=== PATIENT | female | born 1965 | race Caucasian/White ===

== ENCOUNTER 2017-08-24 06:52 | Inpatient (IN) | payer BC ==
--- NOTE | 2017-08-24 07:32 | Emergency Department Record ---
History of Present Illness - General Chief complaint: Extremity Problem Stated complaint: LEG PAIN Time Seen by Provider: 08/24/17 07:03 Source: Patient, RN notes reviewed Mode of Arrival: Ambulatory - History of Present Illness Initial comments: fever 4 days ago and nausea and vomiting with vomiting 4 days ago and vomiting 3 days ago and fever last night and the left leg became very red 6 days ago and progressively worse with ulcers on both legs and the left leg is brightly red and the right leg has ulcers but the skin is hyperpigmented and not inflamed. Primary Dr. is Dr. Lizarraga and she hasn't seen him for a year and last time at the [facility] wound clinic was 1.5 years ago. Seen by urgent care in [place] about one month ago and given an antibiotic for 10 days and they don't know the name of the antibiotic and it helped her. The left leg was the worse leg than too. PMH hypertension and obesity Last time overnight in the hospital was 3 years ago at [facility] for her leg infections. put the ink lines on the left upper calf last night Onset/Timin -: Days(s) Location: Left, Lower Leg History of Same: Yes Associated Symptoms: Fever - Related Data Home Medications Medication Instructions Recorded Confirmed Last Taken Multivitamin [Multi-Vitamin Daily] 1 each PO DAILY 08/24/17 08/24/17 08/23/17 Allergies Allergy/AdvReac Type Severity Reaction Status Date / Time No Known Drug Allergies Allergy Verified 08/24/17 06:54 Travel Screening - Travel/Exposure Within Last 30 Days Have you traveled within the last 30 days?: No Review of Systems Reviewed: No additional complaints except as noted below Constitutional: Reports: As per HPI. Denies: Chills, Fever, Malaise, Night sweats, Weakness, Weight change Eyes: Reports: As per HPI. Denies: Eye discharge, Eye pain, Photophobia, Vision change ENT: Reports: As per HPI. Denies: Congestion, Dental pain, Ear pain, Epistaxis , Hearing loss, Throat pain Respiratory: Reports: As per HPI. Denies: Cough, Dyspnea, Hemoptysis, Stridor, Wheezes Cardiovascular: Reports: As per HPI. Denies: Arrhythmia, Chest pain, Dyspnea on exertion, Edema, Murmurs, Orthopnea, Palpitations, Paroxysmal nocturnal dyspnea, Rheumatic Fever, Syncope Endocrine: Reports: As per HPI. Denies: Fatigue, Heat or cold intolerance, Polydipsia, Polyuria Gastrointestinal: Reports: As per HPI. Denies: Abdominal pain, Constipation, Diarrhea, Hematemesis, Hematochezia, Melena, Nausea, Vomiting Genitourinary: Reports: As per HPI. Denies: Abnormal menses, Discharge, Dyspareunia, Dysuria, Frequency, Hematuria, Incontinence, Retention, Urgency Musculoskeletal: Reports: As per HPI. Denies: Arthralgia, Back pain, Gout, Joint swelling, Myalgia, Neck pain Skin: Reports: As per HPI, Rash, Other (ulcers of both leg and erythema of the left leg.). Denies: Bruising, Change in color, Change in hair/nails, Lesions, Pruritus Neurological: Reports: As per HPI. Denies: Abnormal gait, Confusion, Headache, Numbness, Paresthesias, Seizure, Tingling, Tremors, Vertigo, Weakness Psychiatric: Reports: As per HPI. Denies: Anxiety, Auditory hallucinations, Depression, Homicidal thoughts, Suicidal thoughts, Visual hallucinations Hematological/Lymphatic: Reports: As per HPI. Denies: Anemia, Blood Clots, Easy bleeding, Easy bruising, Swollen glands Past Medical History - SOCIAL HISTORY Smoking Status: Never smoker Alcohol Use: None Drug Use: None - RESPIRATORY Hx Respiratory Disorders: No - CARDIOVASCULAR Hx Cardio Disorders: Yes Hx Hypertension: Yes - NEURO Hx Neuro Disorders: No - GI Hx GI Disorders: No - Hx Genitourinary Disorders: No - ENDOCRINE Hx Endocrine Disorders: No - MUSCULOSKELETAL Hx Musculoskeletal Disorders: No - PSYCH Hx Psych Problems: No - HEMATOLOGY/ONCOLOGY Hx Hematology/Oncology Disorders: No Family Medical History Any Significant Family History?: No Physical Exam - General General Appearance: Alert, Oriented x3, Cooperative, No acute distress - Head Head exam: Normal inspection - Eye Eye exam: Normal appearance, PERRL Pupils: Normal accommodation - ENT ENT exam: Normal exam, Mucous membranes moist, Normal external ear exam, Normal orophraynx, TM's normal bilaterally Ear exam: Normal external inspection. negative: External canal tenderness Nasal Exam: Normal inspection. negative: Discharge, Sinus tenderness Mouth exam: Normal external inspection, Tongue normal Teeth exam: Normal inspection. negative: Dental caries Throat exam: Normal inspection. negative: Tonsillar erythema, Tonsillar exudate - Neck Neck exam: Normal inspection, Full ROM. negative: Tenderness - Respiratory Respiratory exam: Normal lung sounds bilaterally. negative: Respiratory distress - Cardiovascular Cardiovascular Exam: Regular rate, Normal rhythm, Normal heart sounds - GI/Abdominal GI/Abdominal exam: Soft, Normal bowel sounds. negative: Tenderness - Rectal Rectal exam: Deferred - exam: Deferred - Extremities Extremities exam: Full ROM, Normal capillary refill, Pedal edema (left lower leg swollen compared to right), Tenderness (left lower leg) - Back Back exam: Reports: Normal inspection, Full ROM. Denies: Muscle spasm, Rash noted, Tenderness - Neurological Neurological exam: Alert, Normal gait, Oriented X3, Reflexes normal - Psychiatric Psychiatric exam: Normal affect, Normal mood - Skin Skin exam: Warm, Other (skin ulcerated both legs and left draining more than right large skin ulcers ,let red brightly red and painful the right leg hyperpigmented with ulcers draining) Course Vital Signs 08/24/17 07:11 Temperature 98.9 F Pulse Rate [ 99 H Pulse Ox Probe] Respiratory 20 Rate Blood Pressure 137/88 [Left Arm] Pulse Ox 96 - Reevaluation(s) Reevaluation #1: discussed case with Reanna and will admit to Dr. Aragon for IV antibiotics vancomycin 2 gm every 8 hours and unasyn 3 gm every 6 hours 08/24/17 09:22 08/24/17 09:46 Reevaluation #2: discussed findings with patient and her and plan for IV antibiotics and than outpatient wound clinic at [facility]. 08/24/17 09:47 Reevaluation #3: venous doppler no DVT's seen but difficulty seeing much in the lower leg because of body habitus and edema from cellulitis 08/24/17 10:37 Medical Decision Making - Data Complexity MDM Data: Labs Ordered and/or Reviewed, X-Ray Ordered and/or Reviewed (venous dople bilaterally neg for DVT's chest xray neg by my eyes ,left leg no obvious gas by my eyes wound present) - Lab Data Result diagrams: 08/24/17 08:00 08/24/17 08:00 Disposition Clinical Impression: Cellulitis of leg without foot, left Leg ulcer, left Qualifiers: Non-pressure ulcer stage: unspecified non-pressure ulcer stage Qualified Code(s ): L97.929 - Non-pressure chronic ulcer of unspecified part of left lower leg with unspecified severity Ulcer of right leg Qualifiers: Non-pressure ulcer stage: unspecified non-pressure ulcer stage Qualified Code(s ): L97.919 - Non-pressure chronic ulcer of unspecified part of right lower leg with unspecified severity Condition: (2) Stable Forms: Patient Portal Access Time of Disposition: 09:47 Quality - Quality Measures Quality Measures: N/A - Blood Pressure Screening Does Patient Have Any of the Following: No Blood Pressure Classification: Pre-Hypertensive BP Reading Systolic Measurement: 125 Diastolic Measurement: 82 Screening for High Blood Pressure: < Pre-Hypertensive BP, F/U Documented > [ [id number]] Pre-Hypertensive Follow-up Interventions: Referral to alternative/primary care provider.
[2017-08-24 08:12] LABS: HEMATOCRIT 39.4 % (35.0-47.0); HEMOGLOBIN 13.3 gm/dl (11.6-16.0); MEAN CELL VOLUME 80.7 fl (81-97); MEAN CORPUSCULAR HEMOGLOBIN 27.3 pg (27-33); MEAN CORPUSCULAR HGB CONC 33.8 g/dl (32-36); MEAN PLATELET VOLUME 11.3 fl (7.4-10.4); PLATELET COUNT 196 K/uL (130-400); RED BLOOD COUNT 4.88 M/uL (3.80-5.40); WHITE BLOOD COUNT W/O DIFF 8.3 K/uL (4.2-12.2)
[2017-08-24 08:25] LABS: BLOOD UREA NITROGEN 16 mg/dL (6-20)
[2017-08-24 08:26] LABS: CREATININE 0.8 mg/dL (0.5-0.9); EST GLOMERULAR FILTRATION RATE > 60 mL/min
[2017-08-24 08:28] LABS: GLUCOSE,RANDOM 138 mg/dL (74-109)
[2017-08-24] MEDS ORDERED: VANCOMYCIN HCL 2,000 MG in 0.9 % SODIUM CHLORIDE 250ML 250 ML IVPB ONE (09:20)
[2017-08-24] MEDS ORDERED: AMPICILLIN SODIUM/SULBACTAM NA 3 G in 0.9 % SODIUM CHLORIDE 100ML 100 ML IVPB ONE (09:20)
[2017-08-24] MEDS ORDERED: VANCOMYCIN HCL 2,000 MG in 0.9 % SODIUM CHLORIDE 500ML 500 ML IVPB ONE (09:45)
[2017-08-24] MEDS ORDERED: ACETAMINOPHEN 325 MG TAB PO PRN (12:35)
[2017-08-24] MEDS ORDERED: AMPICILLIN SODIUM/SULBACTAM NA 3 G in 0.9 % SODIUM CHLORIDE 100ML 100 ML IVPB SCH (16:00)
--- NOTE | 2017-08-24 17:53 | History & Physical ---
History of Present Illness - Date of Service Date of Service for History & Physical: 08/25/17 - History of Present Illness Admitting Diagnosis: cellulitis of left lower leg History of Present Illness: Mrs. Heredia is a 52 year-old [place] female who presented to the ED on with c/o fever 4 days ago with nausea and vomiting. Her left leg became very red 6 days ago and progressively worse with ulcers on both legs and the hyperpigmented. Primary Dr. is Dr. Lizarraga and she hasn't seen him for a year and last time at the [facility] wound clinic was 1.5 years ago. She was seen by urgent care in [place] about one month ago and given an antibiotic for 10 days and they do not recall the name of the antibiotic, but it did help her. The left leg was more swollen at that time, too. PMH: hypertension and obesity (no htn meds). Last hospital admission was 3 years ago at [facility] for her leg infections. In the ED, her vital signs were stable, she was afebrile. Her CBC and CMP did not indicate acute infection. Blood cultures were obtained, as well as left leg ulcer culture. CXR was negative. A left tib/fib xray was obtained and did show soft tissue swelling on anterior calf, but no bone involvement or free air. Venous doppler was negative, and arterial doppler was ordered. She was admitted for IV antibiotics and plan for outpatient wound clinic follow up. 08/25/17: Pt. is resting comfortably in bed. She denies pain at the present time. Her margin of cellulitis has improved about 2 inches compared to yesterday. Wound culture indicates gram positive cocci in clusters. Arterial doppler indicates moderate arterial disease with diminished blood flow of femoral artery. Plan to continue vanco 2g q12 hours. Meeting with pharmacy and pt's to discuss continuation of zosyn. Pt. is adamant about wanting both antibiotics continued. Travel Screening - Travel/Exposure Within Last 30 Days Have you traveled within the last 30 days?: No - Travel/Exposure Within Last Year Have you traveled outside the [place] in the last year?: No - Additonal Travel Details Have you been exposed to anyone with a communicable illness?: No - Travel Symptoms Symptom Screening: None Review of Systems Constitutional: Reports: As per HPI. Denies: Chills, Fever, Malaise, Night sweats, Weakness, Weight change Eyes: Reports: As per HPI. Denies: Eye discharge, Eye pain, Photophobia, Vision change ENT: Reports: As per HPI. Denies: Congestion, Dental pain, Ear pain, Epistaxis , Hearing loss, Throat pain Respiratory: Reports: As per HPI. Denies: Cough, Dyspnea, Hemoptysis, Stridor, Wheezes Cardiovascular: Reports: As per HPI. Denies: Arrhythmia, Chest pain, Dyspnea on exertion, Edema, Murmurs, Orthopnea, Palpitations, Paroxysmal nocturnal dyspnea, Rheumatic Fever, Syncope Endocrine: Reports: As per HPI. Denies: Fatigue, Heat or cold intolerance, Polydipsia, Polyuria Gastrointestinal: Reports: As per HPI. Denies: Abdominal pain, Constipation, Diarrhea, Hematemesis, Hematochezia, Melena, Nausea, Vomiting Genitourinary: Reports: As per HPI. Denies: Abnormal menses, Discharge, Dyspareunia, Dysuria, Frequency, Hematuria, Incontinence, Retention, Urgency Musculoskeletal: Reports: As per HPI. Denies: Arthralgia, Back pain, Gout, Joint swelling, Myalgia, Neck pain Skin: Reports: As per HPI, Rash, Other (ulcers of both leg and erythema of the left leg.). Denies: Bruising, Change in color, Change in hair/nails, Lesions, Pruritus Neurological: Reports: As per HPI. Denies: Abnormal gait, Confusion, Headache, Numbness, Paresthesias, Seizure, Tingling, Tremors, Vertigo, Weakness Psychiatric: Reports: As per HPI. Denies: Anxiety, Auditory hallucinations, Depression, Homicidal thoughts, Suicidal thoughts, Visual hallucinations Hematological/Lymphatic: Reports: As per HPI. Denies: Anemia, Blood Clots, Easy bleeding, Easy bruising, Swollen glands Past Medical History - SOCIAL HISTORY Smoking Status: Never smoker Alcohol Use: None Drug Use: None - RESPIRATORY Hx Respiratory Disorders: No - CARDIOVASCULAR Hx Cardio Disorders: Yes Hx Hypertension: Yes - NEURO Hx Neuro Disorders: No - GI Hx GI Disorders: No - Hx Genitourinary Disorders: No - ENDOCRINE Hx Endocrine Disorders: No - MUSCULOSKELETAL Hx Musculoskeletal Disorders: No - PSYCH Hx Psych Problems: No - HEMATOLOGY/ONCOLOGY Hx Hematology/Oncology Disorders: No Family Medical History Any Significant Family History?: No H&P Meds/Allergies - Allergies Allergies: Allergies Allergy/AdvReac Type Severity Reaction Status Date / Time No Known Drug Allergies Allergy Verified 08/24/17 06:54 - Home Medications Home Medications Medication Instructions Recorded Confirmed Last Taken Multivitamin [Multi-Vitamin Daily] 1 each PO DAILY 08/24/17 08/24/17 08/23/17 - Active Medications Active Medications: Current Medications Acetaminophen (Tylenol 325mg) 650 mg PO Q4H PRN PRN Reason: PAIN/TEMP Enoxaparin Sodium (Lovenox) 40 mg SC DAILY [facility] Ampicillin Sodium/Sulbactam (Sodium 3 g/ Sodium Chloride) 100 mls @ 200 mls/hr IVPB Q6H JAUN Last Admin: 08/24/17 16:28 Dose: 200 mls/hr Vancomycin HCl 2,000 mg/ (Sodium Chloride) 500 mls @ 250 mls/hr IVPB Q12H JAUN Stop: 08/29/17 23:31 Physical Exam - Vital Signs Vital Signs: Vital Signs - Last 24 Hrs Temp Pulse Resp BP BP Pulse Ox 08/24/17 13:30 18 08/24/17 13:00 98.8 F 85 18 124/61 97 08/24/17 10:29 87 18 125/82 99 08/24/17 07:11 98.9 F 99 H 20 137/88 96 - General General Appearance: Alert, Oriented x3, Cooperative, No acute distress - Head Head exam: Normal inspection - Eye Eye exam: Normal appearance, PERRL Pupils: Normal accommodation - ENT ENT exam: Normal exam, Mucous membranes moist, Normal external ear exam, Normal orophraynx, TM's normal bilaterally Ear exam: Normal external inspection. negative: External canal tenderness Nasal Exam: Normal inspection. negative: Discharge, Sinus tenderness Mouth exam: Normal external inspection, Tongue normal Teeth exam: Normal inspection. negative: Dental caries Throat exam: Normal inspection. negative: Tonsillar erythema, Tonsillar exudate - Neck Neck exam: Normal inspection, Full ROM. negative: Tenderness - Respiratory Respiratory exam: Normal lung sounds bilaterally. negative: Respiratory distress - Cardiovascular Cardiovascular Exam: Regular rate, Normal rhythm, Normal heart sounds - GI/Abdominal GI/Abdominal exam: Soft, Normal bowel sounds. negative: Tenderness - Rectal Rectal exam: Deferred - exam: Deferred - Extremities Extremities exam: Full ROM, Normal capillary refill, Pedal edema (left lower leg swollen compared to right), Tenderness (left lower leg) - Back Back exam: Reports: Normal inspection, Full ROM. Denies: Muscle spasm, Rash noted, Tenderness - Neurological Neurological exam: Alert, Normal gait, Oriented X3, Reflexes normal - Psychiatric Psychiatric exam: Normal affect, Normal mood - Skin Skin exam: Warm, Other (skin ulcerated both legs and left draining more than right large skin ulcers ,let red brightly red and painful the right leg hyperpigmented with ulcers draining) Results - Labs Result Diagrams: 08/25/17 06:20 08/25/17 06:20 Labs Last 24 Hours: Laboratory Results - last 24 hr 08/24/17 08/24/17 08:00 08:00 WBC 8.3 RBC 4.88 Hgb 13.3 Hct 39.4 MCV 80.7 L MCH 27.3 MCHC 33.8 RDW 15.0 H Plt Count 196 MPV 11.3 H Neutrophils % 78.0 Eosinophils % Not Reportable Basophils % Not Reportable Lymphocytes 14.0 L Monocytes 8.0 Sodium 140 Potassium 3.2 L Chloride 97 L Carbon Dioxide 26.0 Anion Gap 17.0 H BUN 16 Creatinine 0.8 Estimated GFR > 60 Random Glucose 138 H Calcium 9.7 - Imaging and Cardiology Chest x-ray Status: Report reviewed VTE H&P Assessment - Risk for VTE Risk for VTE: Yes Risk Level: Moderate Risk Assessment Date: 08/24/17 Risk Assessment Time: 17:51 VTE Orders Placed or Will Be Placed: Yes Plan - Inpatient Certification Inpatient Certification: Admit to inpatient care: Based on my medical assessment, after consideration of patient's risk factors (age, co-morbidities and patient presenting symptoms and acuity), I expect that this patient will remain in the hospital greater than or equal to two midnights and that the services needed warrant inpatient care because: Patient Risk Factors: [Age, co-morbidity of chronic cellulitis and obesity] Estimated length of stay: [72-96 hours] The patient may reasonably be expected to be discharged or transferred to a hospital within 96 hours after admission to [facility]. Services needed: [IV antibiotics, laboratory monitoring] Post hospital care (if known): [wound care] I certify that my determination is in accordance with my understanding of Medicare requirements for reasonable and necessary inpatient services. 08/24/17 17:51 - Detailed Diagnosis and Plan (1) Cellulitis of leg without foot, left Current Visit: Yes Status: Acute Base Code: L03.116 - CELLULITIS OF LEFT LOWER LIMB Comment: 08/25/17: Left leg cellulitis, bilateral leg ulcers. Granulation tissue is present in ulcers bilaterally. Reddness has improved from yesterday (pen line drawn on border of cellulitis). Wound culture indicates gram positive cocci in clusters. Continuing treatment with 2g q12h. (2) Arterial vascular disease Current Visit: Yes Status: Acute Base Code: I70.90 - UNSPECIFIED ATHEROSCLEROSIS Comment: 08/26/17: Arterial doppler done yesterday demonstrated diminished flow in left common and superficial femoral arteries from moderate arterial disease, likely cause of celluitis. Pt. hx of cellulitis infections for several years (last saw wound clinic 1.5 years ago). Follow up CTA of lower extremities recommended for follow-up. Will plan to refer to vascular surgery for outpatient follow up. (3) At risk for deep venous thrombosis Current Visit: Yes Status: Acute Base Code: Z91.89 - OTH PERSONAL RISK FACTORS, NOT ELSEWHERE CLASSIFIED Comment: 08/25/17: Moderate risk for DVT secondary to decreased mobility and infectious process. Pt. is receiving 40mg lovenox sc daily. (4) Full code status Current Visit: Yes Status: Acute Base Code: Z78.9 - OTHER SPECIFIED HEALTH STATUS Comment: 08/25/17- Pt. is full code status
[2017-08-24] MEDS: PIPERACILLIN SODIUM/TAZOBACTAM 3.375 GM in 0.9 % SODIUM CHLORIDE 100ML 100 ML IVPB SCH (22:23)
[2017-08-24] MEDS: VANCOMYCIN HCL 2,000 MG in 0.9 % SODIUM CHLORIDE 500ML 500 ML IVPB SCH (23:02)
[2017-08-25] MEDS: PIPERACILLIN SODIUM/TAZOBACTAM 3.375 GM in 0.9 % SODIUM CHLORIDE 100ML 100 ML IVPB SCH ×3 (04:09→22:22)
[2017-08-25 06:38] LABS: HEMATOCRIT 37.3 % (35.0-47.0); HEMOGLOBIN 12.3 gm/dl (11.6-16.0); MEAN CELL VOLUME 81.6 fl (81-97); MEAN CORPUSCULAR HEMOGLOBIN 26.9 pg (27-33); MEAN PLATELET VOLUME 11.1 fl (7.4-10.4); PLATELET COUNT 218 K/uL (130-400); RED BLOOD COUNT 4.57 M/uL (3.80-5.40); RED CELL DISTRIBUTION WIDTH 15.3 % (11.5-14.5); WHITE BLOOD COUNT W/O DIFF 9.2 K/uL (4.2-12.2)
[2017-08-25 06:53] LABS: ALB/GLOB RATIO 0.8 (1.1-1.8); ALBUMIN 3.2 g/dL (4.0-5.0); ALKALINE PHOSPHATASE 92 U/L (35-104); ALT/SGPT 88 U/L (<33); AST/SGOT 81 U/L (10.0-35.0); BLOOD UREA NITROGEN 14 mg/dL (6-20); CREATININE 0.7 mg/dL (0.5-0.9); EST GLOMERULAR FILTRATION RATE > 60 mL/min; GLUCOSE,RANDOM 111 mg/dL (74-109)
--- NOTE | 2017-08-25 07:14 | RADIOLOGY REPORT ---
EXAM: CHEST, TWO VIEWS HISTORY: HIGH FEVER THREE DAYS AGO, WEAKNESS. TECHNIQUE: AP semi-upright and lateral views of the chest were obtained. Comparison: No prior chest x-ray. FINDINGS: The heart size is within normal limits. The lungs appear expanded with no acute infiltrate seen. Mild torsion of the aorta. No pleural effusion or pneumothorax evident. Hypertrophic spurring in the lower thoracic spine. IMPRESSION: 1. TORSION OF THE AORTA. 2. NO ACUTE INFILTRATE EVIDENT. 3. HYPERTROPHIC SPURRING LOWER THORACIC SPINE. JOB NUMBER: [id number] [facility]
--- NOTE | 2017-08-25 07:20 | RADIOLOGY REPORT ---
EXAM: LEFT LOWER LEG HISTORY: PATIENT INJURED LEFT LEG TWO YEARS AGO, OPEN WOUND TOWARDS ANKLE, NOW HAS REDNESS GOING UP LEG TOWARDS KNEE WITH PAIN AND SWELLING. TECHNIQUE: AP and lateral views of the left lower leg were obtained. Comparison: Left tibia and fibula series 08/28/11. FINDINGS: Diffuse soft tissue prominence again seen. Advanced degenerative arthritis in the medial compartment of the left knee. No definite acute fracture or destructive lesion identified involving the tibia or fibula. There is some deformity along the soft tissues of the anterior aspect of the lower leg which the technologist has indicated represents an open wound in this region. Underlying bones appear intact with no destructive lesion evident. Small plantar calcaneal spur. There is some mottling of the subcutaneous tissues of the calf and heel which may represent some diffuse edema/cellulitis. Any air in the soft tissues is difficult to recognize in this setting of mottled appearance of the fat within the subcutaneous tissues. IMPRESSION: 1. NO DEFINITE DESTRUCTIVE LESION OF THE TIBIA OR FIBULA. 2. ADVANCED DEGENERATIVE ARTHRITIS MEDIALLY LEFT KNEE. 3. SOFT TISSUE DEFORMITY ANTERIORLY IN THE LOWER CALF CORRESPONDING TO AN OPEN WOUND BY HISTORY. 4. MOTTLED APPEARANCE OF THE SUBCUTANEOUS ADIPOSE TISSUE FAIRLY DIFFUSELY LIKELY REPRESENTING SOME DIFFUSE EDEMA/CELLULITIS. JOB [facility]BER: [id number] [facility]
--- NOTE | 2017-08-25 07:35 | US VENOUS DOPPLER REPORT ---
EXAM: EMERGENCY VENOUS DOPPLER ULTRASOUND OF THE LOWER EXTREMITIES BILATERALLY HISTORY: PERIPHERAL VASCULAR DISEASE WITH ULCERATIONS OF BOTH LEGS. TECHNIQUE: Emergency venous Doppler ultrasound of the lower extremities was performed bilaterally. Color flow and spectral analysis were utilized. Compression and flow augmentation maneuvers were supplemented in the thigh and popliteal regions. Comparison: No prior venous Doppler ultrasound of either lower extremity. FINDINGS: RIGHT LOWER EXTREMITY VENOUS DOPPLER: The common femoral and superficial femoral veins on the right appeared unremarkable with compression and flow augmentation, and no thrombus evident. The social services manager notes that at the level of the popliteal fossa, the popliteal vein was very difficult to confidently visualize and this was attributed to patient's body habitus and considerable swelling within the right calf. The right posterior tibial vein and peroneal vein were both seen with no thrombus evident. The anterior tibial vein could not confidently be visualized. LEFT LOWER EXTREMITY VENOUS DOPPLER: The left common femoral and superficial femoral veins on the left were well seen and appeared negative with compression and flow augmentation evident. The upper popliteal vein was visualized and appeared negative, but much of the popliteal vein as well as the veins of the calf could not be confidently identified which the social services manager attributed to a combination of body habitus, considerable edema, tenderness, and an open wound. Consequently these veins remain indeterminate. The social services manager did incidentally note some enlarged lymph nodes in the upper left thigh medially which are nonspecific though may just be reactive. IMPRESSION: 1. LIMITED STUDY DUE TO EXTENSIVE SWELLING OF BOTH LOWER EXTREMITIES RESULTING IN INCOMPLETE EVALUATION OF THE POPLITEAL VEINS AND CALF VEINS BILATERALLY DETAILED ABOVE. NO DVT SEEN IN THE THIGHS BILATERALLY. 2. SOME ENLARGED LYMPH NODES ARE INCIDENTALLY NOTED IN THE UPPER LEFT THIGH MEDIALLY. JOB NUMBER: [id number] [facility]
--- NOTE | 2017-08-25 07:44 | US ARTERIAL DOPPLER REPORT ---
EXAM: EMERGENCY BILATERAL ARTERIAL DOPPLER ULTRASOUND OF THE LOWER EXTREMITIES HISTORY: PERIPHERAL VASCULAR DISEASE WITH ULCERATIONS IN BOTH LOWER LEGS. TECHNIQUE: Sonographic evaluation of the arterial system of the bilateral lower extremities was performed with the addition of Doppler and spectral analysis. Images were obtained with the vascular probe oriented 60 degrees. Comparison: No prior arterial Doppler ultrasound of either lower extremity. FINDINGS: 3 Right Waveform Left Waveform Common Femoral Artery 120 cm/s Triphasic 137 cm/s Monophasic Profunda Femoral Artery 94 cm/s Triphasic 59 cm/s Biphasic Proximal Superficial Femoral Artery 128 cm/s Triphasic 169 cm/s Monophasic Mid Superficial Femoral Artery 124 cm/s Triphasic 113 cm/s Monophasic Distal Superficial Femoral Artery 114 cm/s Triphasic 162 cm/s Monophasic Popliteal Artery 80 cm/s Monophasic Not seen Not seen Anterior Tibial Artery 67 cm/s Biphasic 89 cm/s Biphasic Posterior Tibial Artery 93 cm/s Triphasic 90 cm/s Biphasic Peroneal Artery 90 cm/s Triphasic Not evaluated due to overlying skin ulceration Not evaluated Dorsalis Pedis Artery 39 cm/s Biphasic 20 cm/s Monophasic The ankle brachial indices are not performed due to skin ulcerations about the ankles. When the images are reviewed on the right, normal flow is seen from the common femoral down to the popliteal. The floorhand could identify the popliteal, but could not clearly see flow within the popliteal which he attributed largely due to the patient's large degree of swelling and relatively deep location of the popliteal artery. Beyond this more distally there was normal appearing flow in the trifurcation vessels of the calf and so the significance of the inability to demonstrate flow in the popliteal is uncertain. Follow-up CTA of the lower extremities may be useful. On the left, some plaque is seen in the common femoral and superficial femoral. The amount of plaque seen does not appear to be quite prominent, but there is only monophasic imaging throughout the common as well as superficial femoral suggesting at least moderate disease. Similar to the right side, the popliteal could not clearly be demonstrated to have flow which again may be related to the patient's body habitus. Relatively normal appearing flow is seen in the anterior and posterior tibial with monophasic flow in the dorsalis pedis with reduced peak systolic velocity. Again, CTA of the lower extremities may be useful for further evaluation of these findings. IMPRESSION: 1. FLOW IN THE RIGHT LOWER EXTREMITY APPEARED RELATIVELY NORMAL WITH THE EXCEPTION OF THE POPLITEAL WHICH COULD NOT CLEARLY BE EVALUATION DESCRIBED ABOVE. 2. APPARENT DIMINISHED FLOW IN THE LEFT COMMON AND SUPERFICIAL FEMORAL ARTERIES SUGGESTING AT LEAST MODERATE DISEASE. SIMILAR TO THE RIGHT, THE LEFT POPLITEAL COULD NOT BE ADEQUATELY EVALUATED AND THERE APPEARS TO BE DIMINISHED FLOW IN THE DORSALIS PEDIS. 3. FOLLOW-UP CTA OF THE LOWER EXTREMITIES MAY BE USEFUL FOR FURTHER EVALUATION. JOB NUMBER: [id number] [facility]
[2017-08-25] MEDS: ENOXAPARIN 40 MG/0.4 ML SYR SC SCH (10:58)
[2017-08-25] MEDS: VANCOMYCIN HCL 2,000 MG in 0.9 % SODIUM CHLORIDE 500ML 500 ML IVPB SCH (10:59)
[2017-08-25] MEDS ORDERED: DIPHENHYDRAMINE HCL 25 MG CAPSULE PO ONE (14:25)
[2017-08-25 19:03] LABS: HEMATOCRIT 36.4 % (35.0-47.0); HEMOGLOBIN 12.4 gm/dl (11.6-16.0); MEAN CELL VOLUME 81.4 fl (81-97); MEAN CORPUSCULAR HEMOGLOBIN 27.7 pg (27-33); MEAN CORPUSCULAR HGB CONC 34.1 g/dl (32-36); MEAN PLATELET VOLUME 10.9 fl (7.4-10.4); PLATELET COUNT 227 K/uL (130-400); RED BLOOD COUNT 4.47 M/uL (3.80-5.40); RED CELL DISTRIBUTION WIDTH 15.7 % (11.5-14.5); WHITE BLOOD COUNT W/O DIFF 9.2 K/uL (4.2-12.2)
[2017-08-25 19:34] LABS: ALB/GLOB RATIO 0.9 (1.1-1.8); ALBUMIN 3.3 g/dL (4.0-5.0); ALKALINE PHOSPHATASE 109 U/L (35-104); ALT/SGPT 121 U/L (<33); AST/SGOT 101 U/L (10.0-35.0); BLOOD UREA NITROGEN 17 mg/dL (6-20); CREATININE 0.8 mg/dL (0.5-0.9); EST GLOMERULAR FILTRATION RATE > 60 mL/min; GLUCOSE,RANDOM 119 mg/dL (74-109); TOTAL PROTEIN 7.1 g/dL (6.6-8.7)
[2017-08-25] MEDS: VANCOMYCIN HCL 1,000 MG in 0.9 % SODIUM CHLORIDE 250ML 250 ML IVPB SCH (23:00)
[2017-08-26] MEDS: VANCOMYCIN HCL 1,000 MG in 0.9 % SODIUM CHLORIDE 250ML 250 ML IVPB SCH ×5 (00:04→23:29)
[2017-08-26] MEDS ORDERED: CALCIUM CARBONATE 500 MG TAB.CHEW PO PRN (01:48)
[2017-08-26] MEDS: PIPERACILLIN SODIUM/TAZOBACTAM 3.375 GM in 0.9 % SODIUM CHLORIDE 100ML 100 ML IVPB SCH ×4 (04:13→21:42)
[2017-08-26 07:15] LABS: HEMATOCRIT 34.9 % (35.0-47.0); HEMOGLOBIN 11.3 gm/dl (11.6-16.0); MEAN CELL VOLUME 82.5 fl (81-97); MEAN CORPUSCULAR HEMOGLOBIN 26.7 pg (27-33); MEAN CORPUSCULAR HGB CONC 32.4 g/dl (32-36); MEAN PLATELET VOLUME 11.1 fl (7.4-10.4); PLATELET COUNT 244 K/uL (130-400); RED BLOOD COUNT 4.23 M/uL (3.80-5.40); RED CELL DISTRIBUTION WIDTH 15.9 % (11.5-14.5)
[2017-08-26 07:38] LABS: ALB/GLOB RATIO 0.8 (1.1-1.8); ALBUMIN 2.8 g/dL (4.0-5.0); ALKALINE PHOSPHATASE 107 U/L (35-104); ALT/SGPT 96 U/L (<33); AST/SGOT 56 U/L (10.0-35.0); BLOOD UREA NITROGEN 16 mg/dL (6-20); CREATININE 0.7 mg/dL (0.5-0.9); EST GLOMERULAR FILTRATION RATE > 60 mL/min; GLUCOSE,RANDOM 107 mg/dL (74-109); TOTAL PROTEIN 6.4 g/dL (6.6-8.7)
[2017-08-26] MEDS: ENOXAPARIN 40 MG/0.4 ML SYR SC SCH (09:10)
--- NOTE | 2017-08-26 19:55 | Physician Progress Note ---
Subjective - Date Date of Physician Progress Note: 08/26/17 - Subjective Subjective Comment: 08/23/17: Border of cellulits has remained about the same as yesterday evening, however, appears less red than before. Will continue 2g vanco q12 hr and zosyn 3.375mg q6h. Will order picc line placement today and tentatively plan for d/c home tomorrow with outpatient vanco infusions to continue for total of 10 days. Pt. in agreement of plan. She has an appt with her wound clinic set up for Wednesday 08/30. Plan for pt. to f/u with vascular surgery outpatient after discharge. Objective - Vital Signs Vital Signs: Vital Signs - Last 24 Hrs Temp Pulse Resp BP BP Pulse Ox 08/26/17 17:00 98.2 F 72 18 158/93 100 08/26/17 09:00 20 08/26/17 06:55 97.8 F 77 20 136/72 94 L 08/25/17 21:00 88 18 08/25/17 20:00 98.8 F 88 18 147/84 96 - General General Appearance: Alert, Oriented x3, Cooperative, No acute distress - Head Head exam: Normal inspection - Eye Eye exam: Normal appearance, PERRL Pupils: Normal accommodation - ENT ENT exam: Normal exam, Mucous membranes moist, Normal external ear exam, Normal orophraynx, TM's normal bilaterally Ear exam: Normal external inspection. negative: External canal tenderness Nasal Exam: Normal inspection. negative: Discharge, Sinus tenderness Mouth exam: Normal external inspection, Tongue normal Teeth exam: Normal inspection. negative: Dental caries Throat exam: Normal inspection. negative: Tonsillar erythema, Tonsillar exudate - Neck Neck exam: Normal inspection, Full ROM. negative: Tenderness - Respiratory Respiratory exam: Normal lung sounds bilaterally. negative: Respiratory distress - Cardiovascular Cardiovascular Exam: Regular rate, Normal rhythm, Normal heart sounds - GI/Abdominal GI/Abdominal exam: Soft, Normal bowel sounds. negative: Tenderness - Rectal Rectal exam: Deferred - exam: Deferred - Extremities Extremities exam: Full ROM, Normal capillary refill, Pedal edema (left lower leg swollen compared to right), Tenderness (left lower leg) - Back Back exam: Reports: Normal inspection, Full ROM. Denies: Muscle spasm, Rash noted, Tenderness - Neurological Neurological exam: Alert, Normal gait, Oriented X3, Reflexes normal - Psychiatric Psychiatric exam: Normal affect, Normal mood - Skin Skin exam: Warm, Other (skin ulcerated both legs and left draining more than right large skin ulcers ,let red brightly red and painful the right leg hyperpigmented with ulcers draining) Assessment and Plan - Assessment and Plan (1) Cellulitis of leg without foot, left Current Visit: Yes Status: Acute Base Code: L03.116 - CELLULITIS OF LEFT LOWER LIMB Comment: 08/26/17: Left leg cellulitis, bilateral leg ulcers. Granulation tissue is present in ulcers bilaterally. Wound culture indicates gram positive cocci in clusters. Border of cellulitis about the same as yesterday, but redness has improved overall. Continuing treatment with Vanco 2g q12h and Zosyn 3.375mg q6h. (2) Arterial vascular disease Current Visit: Yes Status: Acute Base Code: I70.90 - UNSPECIFIED ATHEROSCLEROSIS Comment: 08/26/17: Arterial doppler done on 08/24/17 demonstrated diminished flow in left common and superficial femoral arteries from moderate arterial disease, likely cause of celluitis. Pt. hx of cellulitis infections for several years (last saw wound clinic 1.5 years ago). Follow up CTA of lower extremities recommended for follow-up. Will plan to refer to vascular surgery for outpatient follow up. (3) At risk for deep venous thrombosis Current Visit: Yes Status: Acute Base Code: Z91.89 - OTH PERSONAL RISK FACTORS, NOT ELSEWHERE CLASSIFIED Comment: 08/26/17: Moderate risk for DVT secondary to decreased mobility and infectious process. Pt. is receiving 40mg lovenox sc daily. (4) Full code status Current Visit: Yes Status: Acute Base Code: Z78.9 - OTHER SPECIFIED HEALTH STATUS Comment: 08/26/17- Pt. is full code status Results - Labs Result Diagrams: 08/26/17 06:30 08/26/17 06:30 Labs Last 24 Hours: Laboratory Results - last 24 hr 08/26/17 08/26/17 08/26/17 06:30 06:30 12:00 WBC 9.0 RBC 4.23 Hgb 11.3 L Hct 34.9 L MCV 82.5 MCH 26.7 L MCHC 32.4 RDW 15.9 H Plt Count 244 MPV 11.1 H Neutrophils % 67.0 Band Neutrophils % 5.0 Eosinophils % Not Reportable Basophils % Not Reportable Lymphocytes 19.0 Monocytes 7.0 Basophils 0.0 Eosinophil Count 2.0 Sodium 142 Potassium 3.6 Chloride 104 Carbon Dioxide 25.0 Anion Gap 13.0 BUN 16 Creatinine 0.7 Estimated GFR > 60 Random Glucose 107 Calcium 9.3 Total Bilirubin 0.30 AST 56 H ALT 96 H Alkaline Phosphatase 107 H Total Protein 6.4 L Albumin 2.8 L Globulin 3.6 Albumin/Globulin Ratio 0.8 L Vancomycin Trough 12.9 H DVT/PE Assessment - Risk for VTE Risk for VTE: No Risk Level: Moderate Risk Assessment Date: 08/24/17 Risk Assessment Time: 17:51 VTE Orders Placed or Will Be Placed: Yes - Active Medicaitons Current Medications: Current Medications Acetaminophen (Tylenol 325mg) 650 mg PO Q4H PRN PRN Reason: PAIN/TEMP Last Admin: 08/25/17 08:23 Dose: 650 mg Calcium Carbonate/Glycine (Tums) 500 mg PO Q4H PRN PRN Reason: GI UPSET Last Admin: 08/26/17 01:51 Dose: 500 mg Enoxaparin Sodium (Lovenox) 40 mg SC DAILY [facility] Last Admin: 08/26/17 09:10 Dose: 40 mg Vancomycin HCl 1,000 mg/ (Sodium Chloride) 250 mls @ 250 mls/hr IVPB Q12H [facility] Stop: 08/30/17 23:01 Last Infusion: 08/26/17 13:57 Dose: Infused Vancomycin HCl 1,000 mg/ (Sodium Chloride) 250 mls @ 250 mls/hr IVPB Q12H [facility] Stop: 08/31/17 00:01 Last Infusion: 08/26/17 14:25 Dose: Infused Piperacillin Sod/Tazobactam (Sod 3.375 gm/ Sodium Chloride) 100 mls @ 200 mls/ hr IVPB Q6H [facility] Last Infusion: 08/26/17 17:00 Dose: Infused AMI Plan - Labs Result Diagrams: 08/26/17 06:30 08/26/17 06:30
[2017-08-27] MEDS: PIPERACILLIN SODIUM/TAZOBACTAM 3.375 GM in 0.9 % SODIUM CHLORIDE 100ML 100 ML IVPB SCH ×2 (04:12→10:48)
[2017-08-27 06:59] LABS: HEMATOCRIT 35.4 % (35.0-47.0); HEMOGLOBIN 11.6 gm/dl (11.6-16.0); MEAN CELL VOLUME 82.7 fl (81-97); MEAN CORPUSCULAR HEMOGLOBIN 27.1 pg (27-33); MEAN CORPUSCULAR HGB CONC 32.8 g/dl (32-36); MEAN PLATELET VOLUME 10.9 fl (7.4-10.4); PLATELET COUNT 272 K/uL (130-400); RED BLOOD COUNT 4.28 M/uL (3.80-5.40); RED CELL DISTRIBUTION WIDTH 16.2 % (11.5-14.5)
[2017-08-27 07:10] LABS: ALB/GLOB RATIO 0.8 (1.1-1.8); ALBUMIN 3.1 g/dL (4.0-5.0); ALKALINE PHOSPHATASE 101 U/L (35-104); ALT/SGPT 83 U/L (<33); AST/SGOT 30 U/L (10.0-35.0); BLOOD UREA NITROGEN 13 mg/dL (6-20); CREATININE 0.6 mg/dL (0.5-0.9); EST GLOMERULAR FILTRATION RATE > 60 mL/min; GLUCOSE,RANDOM 101 mg/dL (74-109); TOTAL PROTEIN 6.9 g/dL (6.6-8.7)
[2017-08-27] MEDS: ENOXAPARIN 40 MG/0.4 ML SYR SC SCH (10:48)
--- NOTE | 2017-08-27 11:31 | Discharge Summary ---
Providers Discharge Summary Date: 08/27/17 Date of admission: 08/24/17 12:14 Expected Date of Discharge: 08/27/17 Attending physician: ZAN ARANA Primary care physician: DAVID BOCANEGRA D.O. Physical Exam - Vital Signs Vital Signs: Vital Signs - Last 24 Hrs Temp Pulse Resp BP Pulse Ox 08/27/17 09:00 97.7 F 87 18 149/100 96 08/26/17 21:00 79 18 08/26/17 20:59 98.7 F 79 20 151/70 98 08/26/17 17:00 98.2 F 72 18 158/93 100 - General General Appearance: Alert, Oriented x3, Cooperative, No acute distress - Head Head exam: Normal inspection - Eye Eye exam: Normal appearance, PERRL Pupils: Normal accommodation - ENT ENT exam: Normal exam, Mucous membranes moist, Normal external ear exam, Normal orophraynx, TM's normal bilaterally Ear exam: Normal external inspection. negative: External canal tenderness Nasal Exam: Normal inspection. negative: Discharge, Sinus tenderness Mouth exam: Normal external inspection, Tongue normal Teeth exam: Normal inspection. negative: Dental caries Throat exam: Normal inspection. negative: Tonsillar erythema, Tonsillar exudate - Neck Neck exam: Normal inspection, Full ROM. negative: Tenderness - Respiratory Respiratory exam: Normal lung sounds bilaterally. negative: Respiratory distress - Cardiovascular Cardiovascular Exam: Regular rate, Normal rhythm, Normal heart sounds - GI/Abdominal GI/Abdominal exam: Soft, Normal bowel sounds. negative: Tenderness - Rectal Rectal exam: Deferred - exam: Deferred - Extremities Extremities exam: Full ROM, Normal capillary refill, Pedal edema (left lower leg swollen compared to right), Tenderness (left lower leg) - Back Back exam: Reports: Normal inspection, Full ROM. Denies: Muscle spasm, Rash noted, Tenderness - Neurological Neurological exam: Alert, Normal gait, Oriented X3, Reflexes normal - Psychiatric Psychiatric exam: Normal affect, Normal mood - Skin Skin exam: Warm, Other (skin ulcerated both legs and left draining more than right large skin ulcers, left leg brightly red and painful the right leg hyperpigmented with ulcers draining serous fluid) Hospitalization - Hospitalization Admission Diagnosis: cellulitis of left lower leg - Problem List/Discharge Diagnosis (1) Cellulitis of leg without foot, left Current Visit: Yes Status: Acute Base Code: L03.116 - CELLULITIS OF LEFT LOWER LIMB Comment: 08/27/17: Left leg cellulitis, bilateral leg ulcers. Granulation tissue is present in ulcers bilaterally. Wound culture indicates gram positive cocci in clusters. Border of cellulitis has improved since yesterday and overall redness has improved. Planning PICC placement today and d /c home today with plan to f/u for OP vanco infusions. Will also treat with augmentin 875 bid for 10 days. (2) Arterial vascular disease Current Visit: Yes Status: Acute Base Code: I70.90 - UNSPECIFIED ATHEROSCLEROSIS Comment: 08/27/17: Arterial doppler done on 08/24/17 demonstrated diminished flow in left common and superficial femoral arteries from moderate arterial disease, likely cause of celluitis. Pt. hx of cellulitis infections for several years (last saw wound clinic 1.5 years ago). Follow up CTA of lower extremities recommended for follow-up post-discharge. (3) At risk for deep venous thrombosis Current Visit: Yes Status: Acute Base Code: Z91.89 - OTH PERSONAL RISK FACTORS, NOT ELSEWHERE CLASSIFIED Comment: 08/27/17: Pt. will d/c home today and return to normal level of activty. (4) Full code status Current Visit: Yes Status: Acute Base Code: Z78.9 - OTHER SPECIFIED HEALTH STATUS Comment: 08/27/17- Pt. is full code status - Hospitalization Course Disposition: Home, Self-Care Hospital Course: Mrs. Heredia is a 52 year-old [place] female who presented to the ED on with c/o fever 4 days ago with nausea and vomiting. Her left leg became very red 6 days ago and progressively worse with ulcers on both legs and the hyperpigmented. Primary Dr. is Dr. Bocanegra and she hasn't seen him for a year and last time at the [facility] wound clinic was 1.5 years ago. She was seen by urgent care in [place] about one month ago and given an antibiotic for 10 days and they do not recall the name of the antibiotic, but it did help her. The left leg was more swollen at that time, too. PMH: hypertension and obesity (no htn meds). Last hospital admission was 3 years ago at [facility] for her leg infections. In the ED, her vital signs were stable, she was afebrile. Her CBC and CMP did not indicate acute infection. Blood cultures were obtained, as well as left leg ulcer culture. CXR was negative. A left tib/fib xray was obtained and did show soft tissue swelling on anterior calf, but no bone involvement or free air. Venous doppler was negative, and arterial doppler was ordered. She was admitted for IV antibiotics and plan for outpatient wound clinic follow up. 08/25/17: Pt. is resting comfortably in bed. She denies pain at the present time. Her margin of cellulitis has improved about 2 inches compared to yesterday. Wound culture indicates gram positive cocci in clusters. Arterial doppler indicates moderate arterial disease with diminished blood flow of femoral artery. Plan to continue vanco 2g q12 hours. Meeting with pharmacy and pt's to discuss continuation of zosyn. Pt. is adamant about wanting both antibiotics continued. 08/26/17: Border of cellulits has remained about the same as yesterday evening, however, appears less red than before. Will continue 2g vanco q12 hr and zosyn 3.375mg q6h. Will order picc line placement today and tentatively plan for d/c home tomorrow with outpatient vanco infusions to continue for total of 10 days. Pt. in agreement of plan. She has an appt with her wound clinic set up for Wednesday 08/30. Plan for pt. to f/u with vascular surgery outpatient after discharge. 08/27/17: Border of cellulitis has receded slightly and redness has improved overall. PICC line placement scheduled for this morning and pt. will d/c home this afternoon. Vital signs remain stable and labs unremarkable. Plan for pt. to start IV vanco outpatient on Tuesday 08/29 (need authorization from insurance company) and will d/c home with augmentin for gram neg coverage. Procedures: Imaging and X-Rays 08/24/17 07:41 CHEST 2 VIEWS [RAD] Stat 08/24/17 07:54 ARTERIAL DOPPLER LOWER EXT YOSI [US] Stat VENOUS DOPPLER LOWER EXT YOSI [US] Stat 08/24/17 08:20 LOWER LEG, LEFT [RAD] Stat Abnormal Labs: Abnormal Lab Results 08/24/17 08/24/17 08/25/17 Range/Units 08:00 08:00 06:20 Hgb (11.6-16.0) gm/dl Hct (35.0-47.0) % MCV 80.7 L (81-97) fl MCH 26.9 L (27-33) pg RDW 15.0 H 15.3 H (11.5-14.5) % MPV 11.3 H 11.1 H (7.4-10.4) fl Lymphocytes 14.0 L (16-45) % Monocytes 10.0 H (0-9) % Potassium 3.2 L (3.4-4.5) mmol/L Chloride 97 L (98-107) mmol/L Anion Gap 17.0 H (7-16) Random Glucose 138 H (74-109) mg/dL AST (10.0-35.0) U/L ALT (<33) U/L Alkaline Phosphatase (35-104) U/L Total Protein (6.6-8.7) g/dL Albumin (4.0-5.0) g/dL Albumin/Globulin Ratio (1.1-1.8) Vancomycin Trough (5.0-10.0) ug/mL 08/25/17 08/25/17 08/25/17 Range/Units 06:20 18:53 18:53 Hgb (11.6-16.0) gm/dl Hct (35.0-47.0) % MCV (81-97) fl MCH (27-33) pg RDW 15.7 H (11.5-14.5) % MPV 10.9 H (7.4-10.4) fl Lymphocytes (16-45) % Monocytes 10.0 H (0-9) % Potassium (3.4-4.5) mmol/L Chloride (98-107) mmol/L Anion Gap (7-16) Random Glucose 111 H 119 H (74-109) mg/dL AST 81 H 101 H (10.0-35.0) U/L ALT 88 H 121 H (<33) U/L Alkaline Phosphatase 109 H (35-104) U/L Total Protein (6.6-8.7) g/dL Albumin 3.2 L 3.3 L (4.0-5.0) g/dL Albumin/Globulin Ratio 0.8 L 0.9 L (1.1-1.8) Vancomycin Trough (5.0-10.0) ug/mL 08/26/17 08/26/17 08/26/17 Range/Units 06:30 06:30 12:00 Hgb 11.3 L (11.6-16.0) gm/dl Hct 34.9 L (35.0-47.0) % MCV (81-97) fl MCH 26.7 L (27-33) pg RDW 15.9 H (11.5-14.5) % MPV 11.1 H (7.4-10.4) fl Lymphocytes (16-45) % Monocytes (0-9) % Potassium (3.4-4.5) mmol/L Chloride (98-107) mmol/L Anion Gap (7-16) Random Glucose (74-109) mg/dL AST 56 H (10.0-35.0) U/L ALT 96 H (<33) U/L Alkaline Phosphatase 107 H (35-104) U/L Total Protein 6.4 L (6.6-8.7) g/dL Albumin 2.8 L (4.0-5.0) g/dL Albumin/Globulin Ratio 0.8 L (1.1-1.8) Vancomycin Trough 12.9 H (5.0-10.0) ug/mL 08/27/17 08/27/17 Range/Units 06:00 06:00 Hgb (11.6-16.0) gm/dl Hct (35.0-47.0) % MCV (81-97) fl MCH (27-33) pg RDW 16.2 H (11.5-14.5) % MPV 10.9 H (7.4-10.4) fl Lymphocytes (16-45) % Monocytes (0-9) % Potassium (3.4-4.5) mmol/L Chloride (98-107) mmol/L Anion Gap (7-16) Random Glucose (74-109) mg/dL AST (10.0-35.0) U/L ALT 83 H (<33) U/L Alkaline Phosphatase (35-104) U/L Total Protein (6.6-8.7) g/dL Albumin 3.1 L (4.0-5.0) g/dL Albumin/Globulin Ratio 0.8 L (1.1-1.8) Vancomycin Trough (5.0-10.0) ug/mL Condition at Discharge: (2) Stable Discharge Diagnosis: Left leg cellulitis, Moderate arterial disease of lower extremities Discharge Medications - Discharge Medications Prescriptions: Amoxicillin/Potassium Clav [Augmentin 875Mg/125Mg] 1 each PO BID #20 tablet Home Medications: Ambulatory Orders Multivitamin [Multi-Vitamin Daily] 1 each PO DAILY 08/24/17 [Last Taken 08/23/17 ] Acetaminophen [Tylenol 325Mg] 650 mg PO Q4H PRN tablet 08/27/17 [Last Taken Unknown] Amoxicillin/Potassium Clav [Augmentin 875Mg/125Mg] 1 each PO BID #20 tablet [Last Taken Unknown] Calcium Carbonate [Tums] 500 mg PO Q4H PRN tab.chew 08/27/17 [Last Taken Unknown] Discharge Plan - Discharge Instructions Activity at Discharge: Resume Usual Activities As Tolerated Diet at Discharge: Regular Diet Wound Primary Dressing Type: Gauze Roll/Wrap (with kerlix on bilateral lower extremities) Dressing Change: Daily Additional Instructions: Appointment at [facility] August 30 at 9:45 AM. They can be reached at [phone]. [address] [id number] Follow up with your primary care provider within 5-7 days of discharge. -You need a referral to vascular surgery for moderate arterial disease and to consider CTA of bilateral legs once infection is resolved Return to the ED if you experience any worsening swelling, redness, pain, or for any chest pain or shortness of breath. Quality Measures - Quality Measures Quality Measures: Documentation of Current Medications in Medical Record, Screening for High Blood Pressure and F/U Documented - Current Medications Quality Measure: Measure #130: Documentation of Current Medications Documentation of Current Medications: <Current Medications Documented/Reviewed> [G2761] - Blood Pressure Screening Quality Measure: Screening for High Blood Pressure and Follow-Up Documented Does Patient Have Any of the Following: No Blood Pressure Classification: Pre-Hypertensive BP Reading Systolic Measurement: 143 Diastolic Measurement: 83 Screening for High Blood Pressure: < Pre-Hypertensive BP, F/U Documented > [ G8950] Pre-Hypertensive Follow-up Interventions: Follow-up with rescreen every year., Lifestyle modifications. Lifestyle Modification: Weight Reduction, Increased Physical Activity - Elder Abuse Suspicion Index EASI Reference Information: Abdi NEWMAN, Cam C, Elmer Bingham, Zo Medrano.Development and validation of a tool to assist physicians identification of elder abuse: The Elder Abuse Suspicion Index (EASI ). Journal of Elder Abuse and Neglect, 2008; 20 (3): 276-300.
[2017-08-27] MEDS: VANCOMYCIN HCL 1,000 MG in 0.9 % SODIUM CHLORIDE 250ML 250 ML IVPB SCH ×2 (16:05→17:18)
[2017-08-27] MEDS ORDERED: 0.9 % SODIUM CHLORIDE 10ML SYR IVP ONE (18:31)
[2017-08-27] MEDS ORDERED: HEPARIN SODIUM FLUSH 100 UNITS/ML SYR 5ML IV ONE (18:31)
[2017-08-27] MEDS ORDERED: AMOXICILLIN/POTASSIUM CLAV 875MG/125MG TABLET PO SCH (22:00)
== END 2017-08-27 18:30 | disposition home or self-care (01) | DRG 603 ==
LOC: ER 06:52 → MEDSURG 12:14
PROVIDERS: ADMIT Internal Medicine; ATTEND Internal Medicine
DX: L03.116 Cellulitis of left lower limb (principal); L97.929 Non-pressure chronic ulcer of unspecified part of left lower leg with unspecified severity; L97.919 Non-pressure chronic ulcer of unspecified part of right lower leg with unspecified severity; I70.90 Unspecified atherosclerosis; R50.9 Fever, unspecified; R11.2 Nausea with vomiting, unspecified; I10 Essential (primary) hypertension; E66.9 Obesity, unspecified
CPT/HCPCS: 71046; 80048; 80053; 80202; 83036; 83605; 84443; 85027; 93925; 93970; 96365; 96366; 99223; 99233; 99239; 99285; J0295; J1650; J2543; J7040; J7050